=== PATIENT | male | born 1960 | race Caucasian/White ===

== ENCOUNTER 2020-08-14 07:44 | Observation (INO) | payer OTHER ==
[2020-08-14] MEDS ORDERED: Sodium Chloride 0.9% 1,000 ML IV SCH (08:00)
[2020-08-14] MEDS ORDERED: Aspirin 81 MG Tab.Chew PO ONE (08:02)
[2020-08-14] MEDS ORDERED: Nitroglycerin 0.4 MG Tab.SL SL ONE (08:04)
--- NOTE | 2020-08-14 08:10 | EDM.PDOC ---
ED HPI GENERAL MEDICAL PROBLEM - General Chief Complaint: Chest Pain Stated Complaint: CHEST PAIN Time Seen by Provider: 08/14/20 08:00 Source of Information: Reports: Patient History Limitations: Reports: No Limitations - History of Present Illness INITIAL COMMENTS - FREE TEXT/NARRATIVE: patient presented to the ER with a c/o chest pain. no h/o CAD. He woke up from sleep with this chest pain 7 out of 10, radiating from the front to the back. Lying down make it worse. Never had this pain before. no nausea/emesis. No fever or chills. h/o HTN and T2DM - lives in [place] - here visiting for [email or web address] brought the patient to the ER - nitro SL x2 were given. No ASA today h/o obesity and sleep apnea Onset: Today Duration: Minutes: (30), Hour(s): Middle Chest Pain Score (Numeric/FACES): 0 - Related Data Allergies Allergy/AdvReac Type Severity Reaction Status Date / Time No Known Allergies Allergy Verified 08/14/20 08:05 Home Meds: Home Meds Empagliflozin [Jardiance] 25 mg PO DAILY 08/14/20 [History] Linagliptin [Tradjenta] 25 mg PO DAILY 08/14/20 [History] Potassium Citrate [Potassium Citrate ER] 15 mg PO DAILY 08/14/20 [History] Tamsulosin [Flomax] 0.4 mg PO DAILY 08/14/20 [History] amLODIPine [Norvasc] 5 mg PO DAILY 08/14/20 [History] glipiZIDE [Glucotrol XL] 5 mg PO DAILY 08/14/20 [History] Past Medical History Cardiovascular History: Reports: Hypertension Respiratory History: Reports: None Endocrine/Metabolic History: Reports: Diabetes, Type II, Obesity/BMI 30+ ED ROS GENERAL - Review of Systems Review Of Systems: See Below Constitutional: Reports: No Symptoms HEENT: Reports: No Symptoms Respiratory: Reports: No Symptoms Cardiovascular: Reports: Chest Pain Endocrine: Reports: No Symptoms GI/Abdominal: Reports: No Symptoms Musculoskeletal: Reports: No Symptoms Neurological: Reports: No Symptoms Psychiatric: Reports: No Symptoms ED EXAM, GENERAL - Physical Exam Exam: See Below Exam Limited By: No Limitations General Appearance: Alert, WD/WN, Mild Distress Head: Atraumatic Neck: Normal Inspection Respiratory/Chest: No Respiratory Distress, Lungs Clear Cardiovascular: Normal Peripheral Pulses, Regular Rate, Rhythm, No Edema GI/Abdominal: Normal Bowel Sounds, Soft, Non-Tender. No: Tender Extremities: Normal Inspection, Normal Range of Motion, Non-Tender, No Pedal Edema Neurological: Alert, Oriented, No Motor/Sensory Deficits Psychiatric: Normal Affect, Normal Mood Course - Vital Signs Last Recorded V/S: Last Vital Signs Temp 36.1 C 08/14/20 07:55 Pulse 75 08/14/20 09:27 Resp 16 08/14/20 09:27 BP 129/66 08/14/20 09:27 Pulse Ox 96 08/14/20 08:40 - Orders/Labs/Meds Orders: Active Orders 24 hr Category Date Time Status EKG Documentation Completion [RC] ASDIRECTED Care 08/14/20 07:49 Active CXR [Chest 1V Frontal] [CR] Stat Exams 08/14/20 07:50 Taken Chest Abdomen Pelvis w Cont [CT] Stat Exams 08/14/20 09:06 Ordered Heparin Sodium/D5W [Heparin 25,000 Units in D5W 500 ML] Med 08/14/20 09:15 Ordered 25,000 units in 500 ml IV TITRATE Nitroglycerin 25 MG in D5W @ 10 MCG/MIN(250ml) Premix Med 08/14/20 08:45 Ordered Nitroglycerin/D5W [Nitroglycerin 25 MG/D5W 250 ML] 25 mg in 250 ml IV TITRATE Sodium Chloride 0.9% [Normal Saline] 1,000 ml Med 08/14/20 08:00 Active IV ASDIRECTED Medication Orders Nitroglycerin/Dextrose (Nitroglycerin 25 Mg/D5w 250 Ml) 25 mg in 250 mls @ 6 mls/hr IV TITRATE COTY; Protocol Last Titration: 08/14/20 08:59 Dose: 10 mcg/min, 6 mls/hr Documented by: Admin: 08/14/20 08:48 Dose: 5 mcg/min, 3 mls/hr Documented by: MADELEINE Sodium Chloride (Normal Saline) 1,000 mls @ 125 mls/hr IV ASDIRECTED COTY Last Admin: 08/14/20 08:20 Dose: 125 mls/hr Documented by: MADELEINE Heparin Sodium/Dextrose (Heparin 25,000 Units In D5w 500 Ml) 25,000 units in 500 mls @ 20 mls/hr IV TITRATE COTY; Protocol Last Admin: 08/14/20 09:08 Dose: 1,000 units/hr, 20 mls/hr Documented by: MADELEINE Cosigned by: FELTON Labs: Laboratory Tests 08/14/20 08/14/20 08/14/20 Range/Units 08:09 08:10 08:10 WBC (4.0-11.0) K/uL RBC (4.50-6.50) M/uL Hgb (13.0-18.0) g/dL Hct (40.0-54.0) % MCV (76-96) fL MCH (27.0-32.0) pg MCHC (31.0-35.0) g/dL RDW (11.0-16.0) % Plt Count (150-400) K/uL MPV (6.0-10.0) fL Neut % (Auto) (45.0-70.0) % Lymph % (Auto) (20.0-40.0) % Edmunds % (Auto) (3.0-10.0) % Eos % (Auto) (1.0-5.0) % Baso % (Auto) (0.0-0.5) % Neut # (Auto) (2.00-7.50) K/uL Lymph # (Auto) (1.50-4.00) K/uL Edmunds # (Auto) (0.20-0.80) K/uL Eos # (Auto) (0.04-0.40) K/uL Baso # (Auto) (0.02-0.10) K/uL PT 10.0 (9.0-11.5) sec INR 1.0 (1.0-3.5) APTT 19.6 L (24.4-33.2) SECONDS D-Dimer, Quantitative 135 (0-400) ng/mL Sodium 140 (136-145) mmol/L Potassium 3.4 L (3.5-5.1) mmol/L Chloride 103 (98-107) mmol/L Carbon Dioxide 21.2 (21.0-32.0) mmol/L Anion Gap 19.2 H (5.0-15.0) mmol/L BUN 18 (8-26) mg/dL Creatinine 1.29 (0.70-1.30) mg/dL Est Cr Clr Drug Dosing TNP Estimated GFR (MDRD) 57 L (>60) MLS/MIN BUN/Creatinine Ratio 14.0 (6-25) Glucose 325 H (74-100) mg/dL Calcium 9.0 (8.5-10.1) mg/dL Total Bilirubin 0.5 (0.0-1.0) mg/dL AST 18 (15-37) U/L ALT 45 (12-78) U/L Alkaline Phosphatase 130 H (46-116) U/L Troponin I < 0.017 (0.000-0.060) ng/mL Total Protein 7.9 (6.4-8.2) g/dL Albumin 4.4 (3.4-5.0) g/dL Globulin 3.5 (2.2-4.2) g/dL Albumin/Globulin Ratio 1.3 (0.8-2.0) SARS-CoV-2 RNA (LIANG) (NEGATIVE) Blood Type Gel Antibody Screen 08/14/20 08/14/20 08/14/20 Range/Units 08:10 08:15 08:30 WBC 12.5 H (4.0-11.0) K/uL RBC 5.68 (4.50-6.50) M/uL Hgb 16.2 (13.0-18.0) g/dL Hct 47.1 (40.0-54.0) % MCV 83 (76-96) fL MCH 28.5 (27.0-32.0) pg MCHC 34.4 (31.0-35.0) g/dL RDW 12.8 (11.0-16.0) % Plt Count 307 (150-400) K/uL MPV 9.9 (6.0-10.0) fL Neut % (Auto) 52.2 (45.0-70.0) % Lymph % (Auto) 38.2 (20.0-40.0) % Edmunds % (Auto) 7.6 (3.0-10.0) % Eos % (Auto) 1.8 (1.0-5.0) % Baso % (Auto) 0.2 (0.0-0.5) % Neut # (Auto) 6.55 (2.00-7.50) K/uL Lymph # (Auto) 4.78 H (1.50-4.00) K/uL Edmunds # (Auto) 0.95 H (0.20-0.80) K/uL Eos # (Auto) 0.22 (0.04-0.40) K/uL Baso # (Auto) 0.02 (0.02-0.10) K/uL PT (9.0-11.5) sec INR (1.0-3.5) APTT (24.4-33.2) SECONDS D-Dimer, Quantitative (0-400) ng/mL Sodium (136-145) mmol/L Potassium (3.5-5.1) mmol/L Chloride (98-107) mmol/L Carbon Dioxide (21.0-32.0) mmol/L Anion Gap (5.0-15.0) mmol/L BUN (8-26) mg/dL Creatinine (0.70-1.30) mg/dL Est Cr Clr Drug Dosing Estimated GFR (MDRD) (>60) MLS/MIN BUN/Creatinine Ratio (6-25) Glucose (74-100) mg/dL Calcium (8.5-10.1) mg/dL Total Bilirubin (0.0-1.0) mg/dL AST (15-37) U/L ALT (12-78) U/L Alkaline Phosphatase (46-116) U/L Troponin I (0.000-0.060) ng/mL Total Protein (6.4-8.2) g/dL Albumin (3.4-5.0) g/dL Globulin (2.2-4.2) g/dL Albumin/Globulin Ratio (0.8-2.0) SARS-CoV-2 RNA (LIANG) Negative (NEGATIVE) Blood Type O POSITIVE Gel Antibody Screen Negative Meds: Medications Generic Name Dose Route Start Last Admin Trade Name Freq PRN Reason Stop Dose Admin Nitroglycerin/Dextrose 25 mg in 250 mls @ 6 mls/hr 08/14/20 08:45 08/14/20 08:59 Nitroglycerin 25 Mg/D5w 250 Ml IV 10 mcg/min TITRATE COTY 6 mls/hr Titration Protocol 10 MCG/MIN Sodium Chloride 1,000 mls @ 125 mls/hr 08/14/20 08:00 08/14/20 08:20 Normal Saline IV 125 mls/hr ASDIRECTED COTY Administration Heparin Sodium/Dextrose 25,000 units in 500 mls @ 20 mls/hr 08/14/20 09:15 08/14/20 09:08 Heparin 25,000 Units In D5w 500 Ml IV 1,000 units/hr TITRATE COTY 20 mls/hr Administration Protocol 1,000 UNITS/HR Discontinued Medications Generic Name Dose Route Start Last Admin Trade Name Honey PRN Reason Stop Dose Admin Al Hydroxide/Mg Hydroxide 30 ml 08/14/20 08:55 08/14/20 08:56 Gi Cocktail PO 08/14/20 08:56 30 ml ONETIME ONE Administration Aspirin 324 mg 08/14/20 08:02 08/14/20 08:05 Aspirin PO 08/14/20 08:03 324 mg ONETIME ONE Administration Morphine Sulfate 4 mg 08/14/20 08:17 08/14/20 08:20 Morphine IVPUSH 08/14/20 08:18 4 mg ONETIME ONE Administration Morphine Sulfate Confirm 08/14/20 08:28 08/14/20 08:19 Morphine Administered 08/14/20 08:29 Not Given Dose 4 mg .ROUTE .STK-MED ONE Morphine Sulfate 4 mg 08/14/20 09:09 08/14/20 09:15 Morphine IVPUSH 08/14/20 09:10 4 mg ONETIME ONE Administration Morphine Sulfate Confirm 08/14/20 09:21 08/14/20 09:21 Morphine Administered 08/14/20 09:22 Not Given Dose 4 mg .ROUTE .STK-MED ONE Nitroglycerin 0.4 mg 08/14/20 08:04 08/14/20 08:05 Nitrostat SL 08/14/20 08:05 0.4 mg ONETIME ONE Administration Ondansetron HCl 4 mg 08/14/20 09:07 08/14/20 09:16 Zofran Odt PO 08/14/20 09:08 4 mg ONETIME ONE Administration Ondansetron HCl Confirm 08/14/20 09:22 08/14/20 09:15 Zofran Odt Administered 08/14/20 09:23 Not Given Dose 4 mg .ROUTE .STK-MED ONE Sodium Chloride 50 ml 08/14/20 09:13 Normal Saline FLUSH 08/14/20 09:14 ONETIME ONE - Re-Assessments/Exams Free Text/Narrative Re-Assessment/Exam: patient was connected to a monitor up-on arrival to the ER. IV line was started. EKG was obtained - no ST or T wave changes ASA 81 x4 Nitro SL x1 ( total 3 ) pain down to 3-4 CXR - WNL 08/14/20 10:16 trop WNL, DDimer too Nitro drip was started, as well as, heparin drip at 1000 units/hr BP was noted to be elevated, but improved with starting nitro drip Gi cocktail also helped pain down from [address] chest w IV - negative for aortic dissection or acute pathology. Departure - Departure Time of Disposition: 10:21 Disposition: Refer to Observation Condition: Good Clinical Impression: NSTEMI (non-ST elevated myocardial infarction) Chest pain Qualifiers: Chest pain type: chest pain due to myocardial ischemia Ischemic chest pain type: unspecified angina pectoris type Qualified Code(s): I25.9 - Chronic ischemic heart disease, unspecified Referrals: PCP,None [Primary Care Provider] - Forms: ED Department Discharge Sepsis Event Note (ED) - Focused Exam Vital Signs: Vital Signs Temp Pulse Resp BP BP Pulse Ox 08/14/20 09:27 75 16 129/66 08/14/20 09:23 74 16 134/69 08/14/20 09:05 64 147/73 H 08/14/20 08:56 71 160/79 H 08/14/20 08:40 68 170/80 H 96 08/14/20 08:21 63 16 162/76 H 100 08/14/20 08:13 77 19 163/84 H 08/14/20 08:05 163/84 H 08/14/20 07:55 36.1 C 69 16 163/93 H - Problem List & Annotations (1) Chest pain SNOMED Code(s): 72033544 Code(s): R07.9 - CHEST PAIN, UNSPECIFIED Status: Acute Priority: Medium Current Visit: Yes Qualifiers: Chest pain type: chest pain due to myocardial ischemia Ischemic chest pain type: unspecified angina pectoris type Qualified Code(s): I25.9 - Chronic ischemic heart disease, unspecified (2) NSTEMI (non-ST elevated myocardial infarction) SNOMED Code(s): 91385105 Code(s): I21.4 - NON-ST ELEVATION (NSTEMI) MYOCARDIAL INFARCTION Status: Acute Priority: Medium Current Visit: Yes - Problem List Review Problem List Initiated/Reviewed/Updated: Yes - My Orders Last 24 Hours: My Active Orders 08/14/20 07:49 EKG Documentation Completion [RC] ASDIRECTED 08/14/20 07:50 CXR [Chest 1V Frontal] [CR] Stat 08/14/20 08:00 Sodium Chloride 0.9% [Normal Saline] 1,000 ml IV ASDIRECTED 08/14/20 08:45 Nitroglycerin 25 MG in D5W @ 10 MCG/MIN(250ml) Premix Nitroglycerin/D5W [Nitroglycerin 25 MG/D5W 250 ML] 25 mg in 250 ml IV TITRATE 08/14/20 09:06 Chest Abdomen Pelvis w Cont [CT] Stat 08/14/20 09:15 Heparin Sodium/D5W [Heparin 25,000 Units in D5W 500 ML] 25,000 units in 500 ml IV TITRATE - Assessment/Plan Last 24 Hours: My Active Orders 08/14/20 07:49 EKG Documentation Completion [RC] ASDIRECTED 08/14/20 07:50 CXR [Chest 1V Frontal] [CR] Stat 08/14/20 08:00 Sodium Chloride 0.9% [Normal Saline] 1,000 ml IV ASDIRECTED 08/14/20 08:45 Nitroglycerin 25 MG in D5W @ 10 MCG/MIN(250ml) Premix Nitroglycerin/D5W [Nitroglycerin 25 MG/D5W 250 ML] 25 mg in 250 ml IV TITRATE 08/14/20 09:06 Chest Abdomen Pelvis w Cont [CT] Stat 08/14/20 09:15 Heparin Sodium/D5W [Heparin 25,000 Units in D5W 500 ML] 25,000 units in 500 ml IV TITRATE Plan: 1- chest pain: negative trop and normal EKG. Given the mild persistent chest pain and presence of risk factors ( BMI, PMHx and Age ) - decision is to admit to observation for close monitoring and trop trend. Heparin drip at 1000 unit/hr. Nitro drop per protocol wean down as tolerated. 2- HTn: uncontrolled. Initial read upon arrival was 195/95. But improved with Nitro. resume home meds. continue to monitor Trop trend x3 - If trop is +ve will consider transfer to a higher level of care. Patient understand and agree.
[2020-08-14] MEDS ORDERED: Morphine 4 MG/ML VIAL IVPUSH ONE ×2 (08:17→09:09)
[2020-08-14] MEDS ORDERED: Morphine 4 MG/ML VIAL ONE ×2 (08:28→09:21)
[2020-08-14] MEDS ORDERED: Nitroglycerin/D5W 25 MG/250 ML BOTTLE IV SCH (08:45)
[2020-08-14] MEDS ORDERED: GI Cocktail Oral Solution 30 ML PO ONE (08:55)
[2020-08-14] MEDS ORDERED: Ondansetron 4 MG Tab.DIS PO ONE (09:07)
[2020-08-14] MEDS ORDERED: Sodium Chloride 0.9% 50 ML SDV FLUSH ONE (09:13)
[2020-08-14] MEDS ORDERED: Heparin Sodium/D5W 25,000 UNITS/500 ML BAG IV SCH (09:15)
[2020-08-14] MEDS ORDERED: Ondansetron 4 MG Tab.DIS ONE (09:22)
[2020-08-14] MEDS ORDERED: Potassium Chloride 20 MEQ Tab.ER PO ONE (10:29)
[2020-08-14] MEDS ORDERED: Potassium Chloride Riders 10 MEQ in Premix Bag 1 BAG IV ONE (10:29)
--- NOTE | 2020-08-14 10:45 | CT ---
DATE OF SERVICE: 08/14/20 CLINICAL DATA: Chest pain R/O Aortic Dissection Enhanced chest CT: Multi slice acquisition through the chest with IV contrast was performed. No evidence of PE. No pneumothorax. No pleural effusions. No evidence of aortic aneurysm or dissection. There are atelectatic changes in the dependent portion of both lungs. The lungs are otherwise clear. The heart size is normal. No pericardial effusion. No hilar or mediastinal adenopathy. No other significant findings. MTDD
[2020-08-14] MEDS ORDERED: Iopamidol 755 Mg/ML 100 ML Bottle IV SCH (11:00)
[2020-08-14] MEDS ORDERED: Potassium Chloride 20 MEQ Tab.ER ONE (14:01)
[2020-08-14] MEDS: Potassium Chloride Riders 50 ML ONE ×2 (14:27→14:33)
--- NOTE | 2020-08-14 16:09 | CR ---
Date of Service: 08/14/20 Clinical Data: chest pain AP PORTABLE CHEST: The heart size is normal. The lungs are clear. No pneumothorax. No pleural effusions. No evidence of acute intrathoracic disease. [id number] [facility]
--- NOTE | 2020-08-14 17:40 | PCM.DCSUM1 ---
Discharge Summary - Hospital Course HPI Initial Comments: patient initially presented to the ER with a c/o chest pain. EKG and trop were WNL. But given the complaint and PNHx it was felt that patient is delaing w NSTEMI - so he was admitted to the floor for IV heparin and Nitro drip - with plan to repeat and trend troponin. - Discharge Data Discharge Date: 08/14/20 Discharge Disposition: DC/Tfer to Acute Hospital 02 Condition: Fair - Referral to Home Health Primary Care Physician: PCP None - Discharge Diagnosis/Problem(s) (1) Chest pain SNOMED Code(s): 14047424 ICD Code: R07.9 - CHEST PAIN, UNSPECIFIED Status: Acute Priority: Medium Qualifiers: Chest pain type: chest pain due to myocardial ischemia Ischemic chest pain type: unspecified angina pectoris type Qualified Code(s): I25.9 - Chronic ischemic heart disease, unspecified (2) NSTEMI (non-ST elevated myocardial infarction) SNOMED Code(s): 28966088 ICD Code: I21.4 - NON-ST ELEVATION (NSTEMI) MYOCARDIAL INFARCTION Status: Acute Priority: Medium - Patient Summary/Data Hospital Course: after starting Nitro drip - blood pressure has improved and pain started to resolve IV heparin was resumed as well Trop was repeated after 6 hrs - and this came back positive this time discussed the case with the photographer portrait bone glue maker in [facility] - who agreed with the diagnosis of NSTEMI and recommended to transfer the patient for close eval uation and consideration for laborer [employer]. discussed with the patient - who agreed - Discharge Plan *PRESCRIPTION DRUG MONITORING PROGRAM REVIEWED*: Not Applicable *COPY OF PRESCRIPTION DRUG MONITORING REPORT IN PATIENT LESLIE: Not Applicable Home Medications: Home Meds Empagliflozin [Jardiance] 25 mg PO DAILY 08/14/20 [History] Hyoscyamine [Hyomax-SL] 0.125 mg PO DAILY 08/14/20 [History] Linagliptin [Tradjenta] 5 mg PO DAILY 08/14/20 [History] Potassium Citrate [Potassium Citrate ER] 15 mg PO DAILY 08/14/20 [History] Tamsulosin [Flomax] 0.4 mg PO DAILY 08/14/20 [History] amLODIPine [Norvasc] 5 mg PO DAILY 08/14/20 [History] glipiZIDE [Glucotrol XL] 5 mg PO DAILY 08/14/20 [History] Forms: ED Department Discharge Referrals: PCP,None [Primary Care Provider] - - Discharge Summary/Plan Comment DC Time >30 min.: Yes - General Info Functional Status: Reports: Pain Controlled - Review of Systems General: Reports: No Symptoms HEENT: Reports: No Symptoms Pulmonary: Reports: No Symptoms Cardiovascular: Reports: Chest Pain Gastrointestinal: Reports: No Symptoms Genitourinary: Reports: No Symptoms Musculoskeletal: Reports: No Symptoms Skin: Reports: No Symptoms Neurological: Reports: No Symptoms - Patient Data Vitals - Most Recent: Last Vital Signs Temp 36.1 C 08/14/20 07:55 Pulse 97 08/14/20 16:00 Resp 18 08/14/20 16:00 BP 139/76 08/14/20 16:00 Pulse Ox 97 08/14/20 16:00 Weight - Most Recent: 122.47 kg Lab Results - Last 24 hrs: Laboratory Results - last 24 hr 08/14/20 08/14/20 08/14/20 Range/Units 08:09 08:10 08:10 WBC (4.0-11.0) K/uL RBC (4.50-6.50) M/uL Hgb (13.0-18.0) g/dL Hct (40.0-54.0) % MCV (76-96) fL MCH (27.0-32.0) pg MCHC (31.0-35.0) g/dL RDW (11.0-16.0) % Plt Count (150-400) K/uL MPV (6.0-10.0) fL Neut % (Auto) (45.0-70.0) % Lymph % (Auto) (20.0-40.0) % Kern % (Auto) (3.0-10.0) % Eos % (Auto) (1.0-5.0) % Baso % (Auto) (0.0-0.5) % Neut # (Auto) (2.00-7.50) K/uL Lymph # (Auto) (1.50-4.00) K/uL Kern # (Auto) (0.20-0.80) K/uL Eos # (Auto) (0.04-0.40) K/uL Baso # (Auto) (0.02-0.10) K/uL PT 10.0 (9.0-11.5) sec INR 1.0 (1.0-3.5) APTT 19.6 L (24.4-33.2) SECONDS D-Dimer, Quantitative 135 (0-400) ng/mL Sodium 140 (136-145) mmol/L Potassium 3.4 L (3.5-5.1) mmol/L Chloride 103 (98-107) mmol/L Carbon Dioxide 21.2 (21.0-32.0) mmol/L Anion Gap 19.2 H (5.0-15.0) mmol/L BUN 18 (8-26) mg/dL Creatinine 1.29 (0.70-1.30) mg/dL Est Cr Clr Drug Dosing TNP Estimated GFR (MDRD) 57 L (>60) MLS/MIN BUN/Creatinine Ratio 14.0 (6-25) Glucose 325 H (74-100) mg/dL Calcium 9.0 (8.5-10.1) mg/dL Total Bilirubin 0.5 (0.0-1.0) mg/dL AST 18 (15-37) U/L ALT 45 (12-78) U/L Alkaline Phosphatase 130 H (46-116) U/L Troponin I < 0.017 (0.000-0.060) ng/mL Total Protein 7.9 (6.4-8.2) g/dL Albumin 4.4 (3.4-5.0) g/dL Globulin 3.5 (2.2-4.2) g/dL Albumin/Globulin Ratio 1.3 (0.8-2.0) SARS-CoV-2 RNA (LIANG) (NEGATIVE) Blood Type Gel Antibody Screen 08/14/20 08/14/20 08/14/20 Range/Units 08:10 08:15 08:30 WBC 12.5 H (4.0-11.0) K/uL RBC 5.68 (4.50-6.50) M/uL Hgb 16.2 (13.0-18.0) g/dL Hct 47.1 (40.0-54.0) % MCV 83 (76-96) fL MCH 28.5 (27.0-32.0) pg MCHC 34.4 (31.0-35.0) g/dL RDW 12.8 (11.0-16.0) % Plt Count 307 (150-400) K/uL MPV 9.9 (6.0-10.0) fL Neut % (Auto) 52.2 (45.0-70.0) % Lymph % (Auto) 38.2 (20.0-40.0) % Kern % (Auto) 7.6 (3.0-10.0) % Eos % (Auto) 1.8 (1.0-5.0) % Baso % (Auto) 0.2 (0.0-0.5) % Neut # (Auto) 6.55 (2.00-7.50) K/uL Lymph # (Auto) 4.78 H (1.50-4.00) K/uL Kern # (Auto) 0.95 H (0.20-0.80) K/uL Eos # (Auto) 0.22 (0.04-0.40) K/uL Baso # (Auto) 0.02 (0.02-0.10) K/uL PT (9.0-11.5) sec INR (1.0-3.5) APTT (24.4-33.2) SECONDS D-Dimer, Quantitative (0-400) ng/mL Sodium (136-145) mmol/L Potassium (3.5-5.1) mmol/L Chloride (98-107) mmol/L Carbon Dioxide (21.0-32.0) mmol/L Anion Gap (5.0-15.0) mmol/L BUN (8-26) mg/dL Creatinine (0.70-1.30) mg/dL Est Cr Clr Drug Dosing Estimated GFR (MDRD) (>60) MLS/MIN BUN/Creatinine Ratio (6-25) Glucose (74-100) mg/dL Calcium (8.5-10.1) mg/dL Total Bilirubin (0.0-1.0) mg/dL AST (15-37) U/L ALT (12-78) U/L Alkaline Phosphatase (46-116) U/L Troponin I (0.000-0.060) ng/mL Total Protein (6.4-8.2) g/dL Albumin (3.4-5.0) g/dL Globulin (2.2-4.2) g/dL Albumin/Globulin Ratio (0.8-2.0) SARS-CoV-2 RNA (LIANG) Negative (NEGATIVE) Blood Type O POSITIVE Gel Antibody Screen Negative 08/14/20 Range/Units 14:10 WBC (4.0-11.0) K/uL RBC (4.50-6.50) M/uL Hgb (13.0-18.0) g/dL Hct (40.0-54.0) % MCV (76-96) fL MCH (27.0-32.0) pg MCHC (31.0-35.0) g/dL RDW (11.0-16.0) % Plt Count (150-400) K/uL MPV (6.0-10.0) fL Neut % (Auto) (45.0-70.0) % Lymph % (Auto) (20.0-40.0) % Kern % (Auto) (3.0-10.0) % Eos % (Auto) (1.0-5.0) % Baso % (Auto) (0.0-0.5) % Neut # (Auto) (2.00-7.50) K/uL Lymph # (Auto) (1.50-4.00) K/uL Kern # (Auto) (0.20-0.80) K/uL Eos # (Auto) (0.04-0.40) K/uL Baso # (Auto) (0.02-0.10) K/uL PT (9.0-11.5) sec INR (1.0-3.5) APTT (24.4-33.2) SECONDS D-Dimer, Quantitative (0-400) ng/mL Sodium (136-145) mmol/L Potassium (3.5-5.1) mmol/L Chloride (98-107) mmol/L Carbon Dioxide (21.0-32.0) mmol/L Anion Gap (5.0-15.0) mmol/L BUN (8-26) mg/dL Creatinine (0.70-1.30) mg/dL Est Cr Clr Drug Dosing Estimated GFR (MDRD) (>60) MLS/MIN BUN/Creatinine Ratio (6-25) Glucose (74-100) mg/dL Calcium (8.5-10.1) mg/dL Total Bilirubin (0.0-1.0) mg/dL AST (15-37) U/L ALT (12-78) U/L Alkaline Phosphatase (46-116) U/L Troponin I 0.307 H* D (0.000-0.060) ng/mL Total Protein (6.4-8.2) g/dL Albumin (3.4-5.0) g/dL Globulin (2.2-4.2) g/dL Albumin/Globulin Ratio (0.8-2.0) SARS-CoV-2 RNA (LIANG) (NEGATIVE) Blood Type Gel Antibody Screen Med Orders - Current: Current Medications Atorvastatin Calcium (Lipitor) 80 mg PO BEDTIME COTY Nitroglycerin/Dextrose (Nitroglycerin 25 Mg/D5w 250 Ml) 25 mg in 250 mls @ 6 mls/hr IV TITRATE COTY; Protocol Last Titration: 08/14/20 10:24 Dose: 15 mcg/min, 9 mls/hr Documented by: Heparin Sodium/Dextrose (Heparin 25,000 Units In D5w 500 Ml) 25,000 units in 500 mls @ 20 mls/hr IV TITRATE COTY; Protocol Last Admin: 08/14/20 09:08 Dose: 1,000 units/hr, 20 mls/hr Documented by: Iopamidol (Isovue-370 (76%)) 100 ml IV ASDIRECTED COTY Stop: 08/14/20 23:59 Last Admin: 08/14/20 12:26 Dose: 100 ml Documented by: Discontinued Medications Al Hydroxide/Mg Hydroxide (Gi Cocktail) 30 ml PO ONETIME ONE Stop: 08/14/20 08:56 Last Admin: 08/14/20 08:56 Dose: 30 ml Documented by: Aspirin (Aspirin) 324 mg PO ONETIME ONE Stop: 08/14/20 08:03 Last Admin: 08/14/20 08:05 Dose: 324 mg Documented by: Sodium Chloride (Normal Saline) 1,000 mls @ 125 mls/hr IV ASDIRECTED COTY Last Admin: 08/14/20 08:20 Dose: 125 mls/hr Documented by: Potassium Chloride 10 meq/ (Premix) 50 mls @ 50 mls/hr IV ONETIME ONE Stop: 08/14/20 11:28 Last Admin: 08/14/20 14:01 Dose: 50 mls/hr Documented by: Potassium Chloride (Kcl In Water 10 Meq/50 Ml) Confirm Administered Dose 50 mls @ as directed .ROUTE .STK-MED ONE Stop: 08/14/20 14:02 Last Admin: 08/14/20 14:33 Dose: Not Given Documented by: Morphine Sulfate (Morphine) 4 mg IVPUSH ONETIME ONE Stop: 08/14/20 08:18 Last Admin: 08/14/20 08:20 Dose: 4 mg Documented by: Morphine Sulfate (Morphine) Confirm Administered Dose 4 mg .ROUTE .STK-MED ONE Stop: 08/14/20 08:29 Last Admin: 08/14/20 08:19 Dose: Not Given Documented by: Morphine Sulfate (Morphine) 4 mg IVPUSH ONETIME ONE Stop: 08/14/20 09:10 Last Admin: 08/14/20 09:15 Dose: 4 mg Documented by: Morphine Sulfate (Morphine) Confirm Administered Dose 4 mg .ROUTE .STK-MED ONE Stop: 08/14/20 09:22 Last Admin: 08/14/20 09:21 Dose: Not Given Documented by: Nitroglycerin (Nitrostat) 0.4 mg SL ONETIME ONE Stop: 08/14/20 08:05 Last Admin: 08/14/20 08:05 Dose: 0.4 mg Documented by: Ondansetron HCl (Zofran Odt) 4 mg PO ONETIME ONE Stop: 08/14/20 09:08 Last Admin: 08/14/20 09:16 Dose: 4 mg Documented by: Ondansetron HCl (Zofran Odt) Confirm Administered Dose 4 mg .ROUTE .STK-MED ONE Stop: 08/14/20 09:23 Last Admin: 08/14/20 09:15 Dose: Not Given Documented by: Potassium Chloride (Klor-Con M20) 20 meq PO ONETIME ONE Stop: 08/14/20 10:30 Last Admin: 08/14/20 14:01 Dose: 20 meq Documented by: Potassium Chloride (Klor-Con M20) Confirm Administered Dose 20 meq .ROUTE .STK- MED ONE Stop: 08/14/20 14:02 Last Admin: 08/14/20 14:28 Dose: Not Given Documented by: Sodium Chloride (Normal Saline) 50 ml FLUSH ONETIME ONE Stop: 08/14/20 09:14 Last Admin: 08/14/20 10:33 Dose: 100 ml Documented by: - Exam Quality Assessment: Reports: Supplemental Oxygen General: Reports: Alert, Oriented HEENT: Reports: Pupils Equal Lungs: Reports: Clear to Auscultation, Normal Respiratory Effort Cardiovascular: Reports: Regular Rate, Regular Rhythm GI/Abdominal Exam: Normal Bowel Sounds, Soft, Non-Tender Back Exam: Reports: Normal Inspection Extremities: Normal Inspection Psy/Mental Status: Reports: Alert, Normal Affect, Normal Mood #1 Interpretation Rhythm: NSR [place]: Normal P-Wave: Present QRS: Normal ST-T: Normal QT: Normal
[2020-08-14] MEDS ORDERED: atorvaSTATin 80 MG Tab PO SCH (20:00)
== END 2020-08-14 17:45 ==
LOC: LB.ED 07:44 → LB.MS 10:28
PROVIDERS: ADMIT Surgery; ATTEND Surgery
DX: I21.4 Non-ST elevation (NSTEMI) myocardial infarction (principal); I10 Essential (primary) hypertension; E11.9 Type 2 diabetes mellitus without complications; G47.30 Sleep apnea, unspecified; E66.9 Obesity, unspecified; Z20.822 Contact with and (suspected) exposure to COVID-19; Z68.38 Body mass index [BMI] 38.0-38.9, adult; Z79.899 Other long term (current) drug therapy
CPT/HCPCS: 36415; 71045; 71260; 74177; 80053; 84484; 85025; 85379; 85610; 85730; 86850; 86900; 86901; 93005; 99236; A0425; A0429; A9270-GY; J1644; J2270; J3480; J3490; J7030; Q9967; U0002